=== PATIENT | female | born 1970 | race Native Hawaiian/Other Pacific Islander ===

== ENCOUNTER 2019-01-14 07:39 | Outpatient (CLI) | payer OTHER ==
[2019-01-14 08:02] LABS: PLATELET COUNT 244 K/uL (152-353)
[2019-01-14 08:08] LABS: POTASSIUM 4.1 mmol/L (3.6-5.2)
== END 2019-01-14 20:13 | disposition home or self-care (01) ==
LOC: LABW 07:39
PROVIDERS: Internal Medicine
DX: I10 Essential (primary) hypertension (principal); R53.83 Other fatigue
CPT/HCPCS: 36415; 80053; 80061; 85027

== ENCOUNTER 2019-04-14 13:01 | Outpatient (CLI) | payer OTHER | END 2019-04-14 19:06 | disposition home or self-care (01) | LOC: MAMMO 13:01 | DX: Z12.31 Encounter for screening mammogram for malignant neoplasm of breast (principal) ==

== ENCOUNTER 2020-04-15 15:23 | Outpatient (CLI) | payer OTHER | END 2020-04-15 21:15 | disposition home or self-care (01) | LOC: MAMMO 15:23 | PROVIDERS: ATTEND Internal Medicine | DX: Z12.31 Encounter for screening mammogram for malignant neoplasm of breast (principal) ==

== ENCOUNTER 2020-05-11 08:45 | Outpatient (CLI) | payer OTHER ==
[2020-05-11 09:09] LABS: PLATELET COUNT 251 K/uL (152-353)
[2020-05-11 09:10] LABS: POTASSIUM 3.8 mmol/L (3.6-5.2)
== END 2020-05-11 22:03 | disposition home or self-care (01) ==
LOC: US 08:45
PROVIDERS: ATTEND Nurse Practitioner Family
DX: R10.9 Unspecified abdominal pain (principal); R19.7 Diarrhea, unspecified; R11.0 Nausea
CPT/HCPCS: 36415; 80053; 82150; 83690; 85027; 86677

== ENCOUNTER 2020-05-28 08:17 | Outpatient (CLI) | payer OTHER ==
[2020-05-28 08:30] LABS: PLATELET COUNT 213 K/uL (152-353)
[2020-05-28 08:59] LABS: POTASSIUM 4.2 mmol/L (3.6-5.2)
== END 2020-05-28 19:33 | disposition home or self-care (01) ==
LOC: LABW 08:17
PROVIDERS: ATTEND Surgery
DX: K80.10 Calculus of gallbladder with chronic cholecystitis without obstruction (principal)
CPT/HCPCS: 36415; 80053; 85027; 87635; 93005; G2023; U0003

== ENCOUNTER 2023-01-16 12:01 | Outpatient (CLI) | payer OTHER | END 2023-01-16 18:59 | disposition home or self-care (01) | LOC: MAMMO 12:01 | PROVIDERS: ATTEND Nurse Practitioner Family | DX: R92.8 Other abnormal and inconclusive findings on diagnostic imaging of breast (principal) ==